=== PATIENT | female | born 1975 | race Caucasian/White ===

== ENCOUNTER 2022-09-02 15:31 | Emergency (ER) | payer OTHER ==
[~2022-09-02] VITALS: Ht 162.6 cm; Wt 68.0 kg
[2022-09-02] MEDS ORDERED: PREVACID30 MG (16:02)
[2022-09-02] MEDS ORDERED: CARAFATE1 GM (16:02)
[2022-09-02] MEDS ORDERED: PEPCID AC10 MG (16:02)
== END 2022-09-02 20:49 | disposition home or self-care (01) ==
LOC: ER 15:31
DX: R05.9 Cough, unspecified (principal); Z20.822 Contact with and (suspected) exposure to COVID-19